=== PATIENT | female | born 1960 | race American Indian/Alaskan Native ===

== ENCOUNTER 2018-06-14 05:48 | Day surgery (SDC) | payer OTHER ==
[2015-11-05 09:07] VITALS: BMI 42.0
[2018-06-14] MEDS ORDERED: ceFAZolin IV 1 gm in Dextrose 1 GM/50 ML BAG IVPB ONE (07:17)
[2018-06-14] MEDS ORDERED: Propofol 10 mg/ml Inj (20 ML) ONE (07:36)
[2018-06-14] MEDS ORDERED: Midazolam 2 MG/2 ML VIAL ONE (07:36)
[2018-06-14] MEDS ORDERED: Morphine 10 mg/5 ml Oral Soln PO PRN (08:36)
[2018-06-14] MEDS ORDERED: Dextrose 5%/0.45% NS 1,000 ML IV SCH (08:45)
[2018-06-14] MEDS ORDERED: HYDROmorphone 0.5 mg/0.5 ml ISec IVP PRN (09:27)
[2018-06-14 10:58] VITALS: RESP 16
[2018-06-14 13:02] VITALS: BP 135/74; PULSE 86; TEMP 97.8; O2SAT 98
--- NOTE | 2018-06-14 20:04 | OP ---
Copied To: Gomez Valenzuela MD Attending MD: Gomez Valenzuela MD PROCEDURE DATE: 06/14/2018 PREOPERATIVE DIAGNOSIS: Chronic tonsillitis. POSTOPERATIVE DIAGNOSIS: Chronic tonsillitis. PROCEDURE: Tonsillectomy. SIGNIFICANT FINDINGS: Chronic infected tonsils. DESCRIPTION OF PROCEDURE: The patient was brought into the room, placed in supine position and anesthesia was initiated through an ET tube. The patient was draped in the usual manner. The right tonsil was grabbed, pulled medially. A mouth gag was placed in oral cavity, opened and suspended on the [employer] the usual manner. Right tonsil was grabbed, pulled medially. Incision was made in the anterior tonsillar pillar using coblation. Dissection was done between tonsil and tonsillar fossa using coblation until the tonsil was removed. Bleeding was controlled using coblation. Next, the other tonsil was grabbed, pulled medially. Incision was made in the anterior tonsillar pillar using coblation. Dissection was done between tonsil and tonsillar fossa using coblation until the tonsil was removed. Bleeding was controlled using coblation. Both tonsillar beds were rubbed vigorously with a coblation wand. No bleeding was noted. Mouth gag was let down for 30 seconds, put back up, no bleeding was noted. Mouth gag was then taken down and removed. The patient was taken off anesthesia and taken to recovery room in stable manner. Gomez Valenzuela MD
== END 2018-06-14 13:25 | disposition home or self-care (01) ==
LOC: C.SDS 05:48
PROVIDERS: ATTEND Otolaryngology
DX: J35.01 Chronic tonsillitis (principal)
CPT/HCPCS: 42826; 88304; J0690; J1100; J1170; J2250; J2704; J3010